=== PATIENT | male | born 1985 | race Caucasian/White ===

== ENCOUNTER 2020-12-12 06:20 | Emergency (ER) | payer BC ==
[~2020-12-12] VITALS: Ht 182.9 cm; Wt 75.0 kg
[2020-12-12] MEDS ORDERED: ADDERALL10 MG PO (07:06)
[2020-12-12 07:59] LABS: HEMATOCRIT 41.3 % (39.0-50.0); HEMOGLOBIN 13.4 g/dl (14.0-18.0); IMMATURE GRANULOCYTES 0.2 % (0.0-5.0); MEAN CELL VOLUME 91.4 fL CALC (80.0-100.0); MEAN CORPUSCULAR HGB 29.6 pG CALC (26.0-32.0); MEAN CORPUSCULAR HGB CONC 32.4 g/dL CAL (32.0-36.0); NEUT# 2.28 thou/uL (1.82-7.42); RED BLOOD COUNT 4.52 mill/uL (4.70-6.10); RED CELL DISTRI WIDTH 13.1 % (11.5-15.5)
[2020-12-12 08:20] LABS: ANION GAP 11 (6-22 (CALC)); BUN 17 mg/dL (9-20); BUN/CREATININE RATIO 19 (12-20 (CALC)); CARBON DIOXIDE 27 mmol/l (22-30); CHLORIDE 105 mmol/l (95-108); CREATININE 0.9 mg/dL (0.7-1.3); GFR > 60 ML/MIN (>=60 (CALC)); GFR FOR AFR.AMER. > 60 ML/MIN (>=60 (CALC)); POTASSIUM 4.2 mmol/l (3.5-5.1); SODIUM 139 mmol/l (137-146)
[2020-12-12 09:35] VITALS: BP 112/76
== END 2020-12-12 09:35 | disposition home or self-care (01) | DRG 313 ==
LOC: ED 06:20 → EDSEX 06:20 → ED 07:17
PROVIDERS: Family Medicine
DX: R07.89 Other chest pain (principal); F17.200 Nicotine dependence, unspecified, uncomplicated; X50.0XXA Overexertion from strenuous movement or load, initial encounter; Y93.83 Activity, rough housing and horseplay

== ENCOUNTER 2021-05-06 13:21 | Emergency (ER) | payer BC ==
[~2021-05-06 13:21] MED LIST: ADDERALL10 MG PO
[2021-05-06] MEDS ORDERED: VENTOLIN HFA IN (14:50)
[2021-05-06] MEDS ORDERED: DECADRON6 MG PO (14:50)
[2021-05-06] MEDS ORDERED: AZITHROMYCIN500 MG PO (14:50)
[2021-05-06 15:06] VITALS: BP 126/74
== END 2021-05-06 15:31 | disposition home or self-care (01) | DRG 177 ==
LOC: ED 13:21
DX: U07.1 COVID-19 (principal); J12.82 Pneumonia due to coronavirus disease 2019; F17.200 Nicotine dependence, unspecified, uncomplicated